=== PATIENT | female | born 1955 | race Caucasian/White ===

== ENCOUNTER 2016-09-16 08:09 | Emergency (ER) | payer OTHER ==
[~2016-09-16 08:09] MED LIST: ACETAMINOPHEN PO; AFRIN3 ML NS; AMBIEN10 MG PO; AMITRYPTYLINE PO; AMOXICILLIN875 MG PO; ATARAX PO; AUGMENTIN400 MG; BACTRIM DS TABL1 TAB PO; CYMBALTA PO; DARVOCET-N 1001 TAB PO; FAMOTIDINE PO; FLEXERIL10 M1 PO; KEFLEX PO; KLONOPIN PO; LEVAQUIN PO; LEXAPRO PO; LIBRIUM5 MG; MEDROL4 MG/DOSE- PO; MULTIVITAMIN W-1 TAB; NEURONTIN; NEURONTIN PO; NEURONTIN600 MG; PEPCID PO; PHENERGAN PO; PYRIDIUM PO; RANITIDINE HCL150 M1 PO; TOPAMAX PO; TRAZODONE PO; VICODIN 5/500 T1 TAB PO; VOLTAREN75 MG PO; WELLBUTRIN100 MG PO; XANAX0.5 M1; ZOLOFT; ZOLOFT100 MG PO; ZYRTEC PO; [UNRECOGNIZED DRUG - REMARK]
[2016-09-16 08:24] LABS: URINE SOURCE CLEAN CATCH
[2016-09-16 08:29] LABS: URINE APPEARANCE CLEAR; URINE BILIRUBIN NEG (NEG); URINE BLOOD NEG (NEG); URINE COLOR YELLOW; URINE GLUCOSE NEG (NORM); URINE KETONE NEG (NEG); URINE LEUKOCYTE ESTERASE TRACE (NEG); URINE NITRATE NEG (NEG); URINE PH 5.5 (5-8); URINE PROTEIN NEG (NEG); URINE UROBILINOGEN 0.2 MG/DL (NORM)
[2016-09-16 08:36] LABS: MICRO INDICATED? YES
[2016-09-16 08:43] LABS: URINE RBC 0-2 /[HPF] (0-2)
[2016-09-16 08:44] LABS: CULTURE INDICATED? YES; URINE BACTERIA 1+ (NEG); URINE SQUAMOUS EPITHELIAL CELL FEW /[HPF]
[2016-09-16 08:46] LABS: URINE MUCUS PRESENT
[2016-09-18 00:25] LABS: CHLAMYDIA TRACH Not Detected (Not Detected); N GONOR Not Detected (Not Detected)
== END 2016-09-16 09:08 | disposition home or self-care (01) ==
LOC: SED 08:09
PROVIDERS: Emergency Medicine
DX: N30.00 Acute cystitis without hematuria (principal); N76.0 Acute vaginitis; F32.9 Major depressive disorder, single episode, unspecified; Z98.890 Other specified postprocedural states
CPT/HCPCS: 81003; 87086; 87491; 87591; 99283